=== PATIENT | female | born 1955 | race Caucasian/White ===

== ENCOUNTER → 2016-08-05 | Outpatient (CLI) | payer OTHER ==
[~2016-08-05] MED LIST: AMPYRA PO; HYDR-1838 PO; MULTTAB58 PO; NITR1CAP32 PO; SNQ50 PO; WARF5TAB90 PO; WARF7.5T PO
[2016-08-05 17:10] LABS: BASO % 0.4 %; BASO ABS # 0.03 K/uL (0-0.2); COMPLETE YES; EOS % 3.2 %; IG% 0.1 %; LYMPH % 34.7 %; LYMPH ABS # 2.36 K/uL (1.2-3.4); MEAN CELL VOLUME 85.4 fL (80-100); MEAN CORPUSCULAR HEMOGLOBIN 28.8 pg (25-34); MEAN CORPUSCULAR HGB CONC 33.7 g/dl (32-36); MEAN PLATELET VOLUME 10.7 fL (7.4-10.4); MONO % 5.1 %; NEUT % 56.5 %; PLATELET COUNT 297 K/uL (130-400); WHITE BLOOD COUNT 6.81 K/uL (4.8-10.8)
[2016-08-05 17:47] LABS: LYME DISEASE AB IGG NEG (NEG); LYME DISEASE AB IGM NEG (NEG)
[2016-08-05 18:18] LABS: ALKALINE PHOSPHATASE 98 U/L (45-117); ALT/SGPT 31 U/L (12-78); AST/SGOT 31 U/L (15-37); BLOOD UREA NITROGEN 21 mg/dl (7-18); CALCIUM 9.7 mg/dl (8.5-10.1); CARBON DIOXIDE 30 mmol/L (21-32); CHLORIDE 105 mmol/L (98-107); CREATININE 0.74 mg/dl (0.60-1.20); GLUCOSE 104 mg/dl (70-99); POTASSIUM 3.9 mmol/L (3.5-5.1); SODIUM 141 mmol/L (136-145)
[2016-08-10 18:48] LABS: JCV ANTIBODY NEGATIVE; JCV INDEX 0.13
== END | disposition home or self-care (01) ==
LOC: C.LABBC 13:56
PROVIDERS: ATTEND Psychiatry & Neurology Neurology
DX: G35 Multiple sclerosis (principal)

== ENCOUNTER → 2016-08-07 | Outpatient (CLI) | payer OTHER ==
[~2016-08-07] MED LIST changes: +GADAVIST IV PRN
--- NOTE | 2016-08-07 14:35 | DIAGNOSTIC IMAGING REPORT ---
Brain MRI WITH AND WITHOUT CONTRAST HISTORY: Multiple sclerosis. TECHNIQUE: Multiplanar multisequence MRI of the brain was performed both before and after the intravenous administration of contrast. COMPARISON STUDY: Right MRI 07/16/2015. FINDINGS: No areas of restricted diffusion. No acute intracranial hemorrhage, midline shift or mass effect is present. The ventricular system is stable. A 1.2 cm T2 hyperintense nonenhancing lesion within the atrium of the right lateral ventricle is unchanged since initial MRI. 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 No areas of parenchymal enhancement are present. Moderate mucosal thickening and small fluid levels within the maxillary sinuses. Bilateral mastoid effusions have slightly improved. No significant change in the multiple scattered and patchy areas of T2 hyperintensity within the white matter of the supratentorial and infratentorial brain. This most pronounced within the periventricular locations. This is consistent with the patient's history of multiple sclerosis. IMPRESSION: 1. No change in the extensive white matter plaques within the supratentorial and infratentorial brain consistent with the patient's history of multiple sclerosis. 2. Acute on chronic paranasal sinusitis. 3. No abnormal enhancement to suggest active demyelination. Electronically signed by: Kavin Edwards M.D. 08/07/2016 2:33 PM Dictated Date/Time: 08/07/2016 2:22 PM
--- NOTE | 2016-08-07 17:09 | DIAGNOSTIC IMAGING REPORT ---
MRI CERVICAL SPINE COMBO CLINICAL HISTORY: Multiple sclerosis. COMPARISON STUDY: No priors. TECHNIQUE: MRI of the cervical spine is performed utilizing various T1 and T2-weighted sequences in the axial and sagittal planes. Contrast-enhanced images were acquired following the IV administration of 7 cc of Gadavist. Examination is degraded by spinal curvature and motion artifact. FINDINGS: Cervical spine: Vertebral body height and alignment are maintained throughout the cervical spine. There is dextrocurvature of the cervical spine. Vertebral body height and alignment appear maintained. The atlantodental articulation is preserved. The spinous processes appear intact. No destructive bony process is suspected. Intervertebral discs: There is degenerative disc desiccation seen throughout the cervical spine. Moderate loss of height is seen at C5-C6. Spinal cord: There is extensive T2 signal abnormality seen throughout the cervical spine. This extends from the medulla into the upper thoracic cord. No abnormal enhancement is identified on the postcontrast images. There is no significant thinning of the visualized cervical cord. C2-C3: Unremarkable. C3-C4: Unremarkable. C4-C5: A posterior disc osteophyte complex effaces the ventral subarachnoid space. Uncovertebral and facet arthropathy cause moderate to severe left and minimal right neural foraminal stenosis. C5-C6: A posterior disc osteophyte complex effaces the ventral subarachnoid space. Uncovertebral and facet arthropathy cause moderate to severe left and minimal right neural foraminal stenosis. C6-C7: A posterior disc osteophyte complex abuts the ventral cord. Uncovertebral and facet arthropathy cause minimal left neural foraminal stenosis. C7-T1: Unremarkable. Soft tissues: The prevertebral and paraspinous soft tissues are within normal limits. Brain parenchyma: T2 hyperintense lesions are identified within the keerthi and medulla. IMPRESSION: 1. There is diffuse T2 signal abnormality identified throughout the cervical cord which extends from the medulla to the upper thoracic region. This is consistent with the reported clinical history of multiple sclerosis. No abnormal enhancement is identified on the postcontrast images. 2. Cervical spondylosis as detailed above. Dictated: 08/07/2016 3:00 PM Transcribed: 08/07/2016 5:08 PM Jimbo Electronically signed by: Ty Godwin M.D. 08/08/2016 1:19 AM Dictated Date/Time: 08/07/2016 3:00 PM
[2016-08-10 17:34] LABS: VARICELLA ZOS VIR IGM AB <=0.90 (<=0.90)
== END | disposition home or self-care (01) ==
LOC: C.MRIBC 12:24
PROVIDERS: ATTEND Psychiatry & Neurology Neurology
DX: G35 Multiple sclerosis (principal); Z79.899 Other long term (current) drug therapy; M25.50 Pain in unspecified joint

== ENCOUNTER → 2016-09-07 | Outpatient (CLI) | payer OTHER ==
[~2016-09-07] MED LIST changes: -GADAVIST IV PRN
--- NOTE | 2016-10-02 13:47 | CODING QUERY NO DIAGNOSIS ---
TREATMENT RENDERED WITHOUT A DIAGNOSIS To promote full compliance with coding requirements relating to patient care, physician participation is requested in all cases of tapeman uncertainty. Please assist us with providing a diagnosis/symptom for the test(s) below: A diagnosis/symptom was not documented on your Order. A valid diagnosis/symptom is required to bill all insurances. Please remember that we are unable to code a diagnosis of rule out, probable, possible, questionable, or suspected. Tests that require a diagnosis: * ECG ROUTINE DIAGNOSIS: Provider Signature: Date: Thank you Marline Malone [employer] Once completed, please kindly fax back to [phone] For questions please call [phone]
== END | disposition home or self-care (01) ==
LOC: C.CPL 11:37
PROVIDERS: ATTEND Psychiatry & Neurology Neurology
DX: G35 Multiple sclerosis (principal); Z79.899 Other long term (current) drug therapy

== ENCOUNTER → 2016-09-21 | Outpatient (CLI) | payer OTHER | END | disposition home or self-care (01) | LOC: C.CPL 14:29 | PROVIDERS: ATTEND Psychiatry & Neurology Neurology | DX: G35 Multiple sclerosis (principal) ==

== ENCOUNTER → 2016-12-17 | Outpatient (CLI) | payer BC ==
[2016-12-17 17:01] LABS: BASO % 0.6 %; BASO ABS # 0.02 K/uL (0-0.2); COMPLETE YES; HEMATOCRIT 41.5 % (37-47); IG% 0.3 %; LYMPH % 12.4 %; LYMPH ABS # 0.39 K/uL (1.2-3.4); MEAN CELL VOLUME 85.2 fL (80-100); MEAN CORPUSCULAR HEMOGLOBIN 29.2 pg (25-34); MEAN CORPUSCULAR HGB CONC 34.2 g/dl (32-36); MONO % 11.1 %; NEUT % 69.6 %; PLATELET COUNT 256 K/uL (130-400); RED BLOOD COUNT 4.87 M/uL (4.2-5.4); WHITE BLOOD COUNT 3.15 K/uL (4.8-10.8)
[2016-12-17 17:09] LABS: BLOOD UREA NITROGEN 19 mg/dl (7-18); BUN/CREATININE RATIO 24.9 (10-20); CREATININE 0.78 mg/dl (0.60-1.20)
== END | disposition home or self-care (01) ==
LOC: C.LABBC 12:52
PROVIDERS: ATTEND Urology
DX: G35 Multiple sclerosis (principal); N39.0 Urinary tract infection, site not specified

== ENCOUNTER → 2017-01-05 | Outpatient (CLI) | payer BC ==
--- NOTE | 2017-01-05 08:41 | DIAGNOSTIC IMAGING REPORT ---
RENAL ULTRASOUND CLINICAL HISTORY: Neurogenic bladder. Urinary tract infection. COMPARISON STUDY: Renal ultrasound December 30, 2015. TECHNIQUE: Sonography of the kidneys and the urinary bladder was performed. FINDINGS: The right kidney measures 10.7 cm in maximal dimension and the left measures 10 cm. There is no hydronephrosis. Renal echogenicity, size and cortical thickness are normal. The bladder is unremarkable by sonography. Both ureteral jets were identified. No renal calculi or masses were identified. IMPRESSION: Normal renal ultrasound. No hydronephrosis. Electronically signed by: Norberto Finley M.D. 01/05/2017 8:40 AM Dictated Date/Time: 01/05/2017 8:38 AM
== END | disposition home or self-care (01) ==
LOC: C.ULTRBC 07:58
PROVIDERS: ATTEND Urology
DX: N31.9 Neuromuscular dysfunction of bladder, unspecified (principal); N39.0 Urinary tract infection, site not specified

== ENCOUNTER → 2017-01-22 | Outpatient (CLI) | payer BC ==
[2017-01-22 13:36] LABS: BASO % 0.8 %; BASO ABS # 0.03 K/uL (0-0.2); COMPLETE YES; HEMATOCRIT 40.2 % (37-47); MEAN CELL VOLUME 85.4 fL (80-100); MEAN CORPUSCULAR HEMOGLOBIN 29.1 pg (25-34); MEAN CORPUSCULAR HGB CONC 34.1 g/dl (32-36); MEAN PLATELET VOLUME 11.1 fL (7.4-10.4); MONO % 11.1 %; NEUT % 63.1 %; PLATELET COUNT 261 K/uL (130-400); RED BLOOD COUNT 4.71 M/uL (4.2-5.4); WHITE BLOOD COUNT 3.88 K/uL (4.8-10.8)
== END | disposition home or self-care (01) ==
LOC: C.LABBC 10:05
PROVIDERS: ATTEND Physician Assistant
DX: G35 Multiple sclerosis (principal)

== ENCOUNTER → 2017-06-18 | Outpatient (CLI) | payer BC ==
[2017-06-18 11:12] LABS: BLOOD UREA NITROGEN 15 mg/dl (7-18); CREATININE 0.87 mg/dl (0.60-1.20)
== END | disposition home or self-care (01) ==
LOC: C.LABBC 07:33
PROVIDERS: ATTEND Physician Assistant
DX: Z00.00 Encounter for general adult medical examination without abnormal findings (principal)

== ENCOUNTER → 2017-06-21 | Outpatient (CLI) | payer BC ==
[~2017-06-21] MED LIST changes: +GADAVIST IV PRN
--- NOTE | 2017-06-21 18:08 | DIAGNOSTIC IMAGING REPORT ---
MRI OF THE BRAIN COMBO CLINICAL HISTORY: Multiple sclerosis. COMPARISON STUDY: MRI of the brain dated 08/07/2016. TECHNIQUE: MRI of the brain was performed utilizing various T1 and T2-weighted sequences in the axial, sagittal, and coronal planes. Contrast-enhanced sequences were acquired following the administration of 8 cc of Gadavist. The examination is performed using the multiple sclerosis protocol. FINDINGS: Brain parenchyma: There is extensive confluent T2 signal abnormality seen throughout the subcortical and periventricular white matter, likely related to the reported clinical history of multiple sclerosis. This is not appreciably changed from 08/07/2016. No abnormal enhancement is identified on the postcontrast sequences. There is no hemorrhage or mass effect. There is no restricted diffusion typical for acute ischemia. No enhancing mass lesion is identified on the postcontrast images. Dailey-white matter differentiation is preserved. No extra-axial fluid collection is seen. The cerebellar tonsils are normal in configuration. Ventricles, sulci, and cisterns: Normal in configuration. Pituitary and sella: Unremarkable. Intracranial vasculature: Normal flow voids are maintained at the skull base. Orbits: The bony orbits are grossly intact. Orbital contents are normal in appearance. Sinuses and mastoids: Clear. Calvarium: Unremarkable. Cervical cord: Partially visualized cervical spinal cord is normal in morphology and signal intensity. IMPRESSION: 1. Extensive T2 signal abnormality is again identified throughout the white matter and consistent with the reported clinical history of multiple sclerosis. This has not appreciably changed from 08/07/2016. 2. No abnormal enhancement is identified on the postcontrast sequences. 3. There is no hemorrhage or evidence of acute ischemia. Electronically signed by: Ty Godwin M.D. 06/21/2017 6:07 PM Dictated Date/Time: 06/21/2017 6:01 PM
--- NOTE | 2017-06-21 18:24 | DIAGNOSTIC IMAGING REPORT ---
CERVICAL SPINE COMBO HISTORY: Multiple sclerosis G35 Multiple [id number] TECHNIQUE: Multiplanar multisequence MRI of the cervical spine was performed both before and after the use of intravenous contrast. COMPARISON STUDY: 08/07/2016 FINDINGS: Essentially unchanged exam compared to the prior study. Degenerative disc changes noted throughout considered most significant at C5-C6. This again is unchanged. The cervical spinal cord demonstrates extensive abnormal T2 signal characteristics throughout the entire cervical region. This extends again from the medulla into the upper thoracic region. Overall configuration is similar. There is no significant postcontrast enhancement. C2-C3: No significant central canal or neural foraminal narrowing. C3-C4: No significant central canal or neural foraminal narrowing. C4-C5: Posterior osteophytic change effacing the anterior subarachnoid space. Moderate bilateral foraminal stenosis unchanged. C5-C6: Posterior osteophytic and bulging disc components again effacing the anterior subarachnoid space. Moderate bilateral foraminal stenosis unchanged. C6-C7: Posterior osteophytic change unaltered from the prior study. C7-T1: No significant central canal or neural foraminal narrowing. IMPRESSION: 1. Diffuse signal abnormalities consistent with a diffuse demyelinating disorder extending from the medulla through the upper thoracic cord region. 2. No evidence for postcontrast enhancement. 3. This appearance again is consistent with that of a diffuse stable demyelinating disorder. 4. Degenerative disc change, posterior osteophytic change, and posterior bulging disc components are unaltered from the prior study. 5. This study is considered to be unchanged from the prior exam. The above report was generated using voice recognition software. It may contain grammatical, syntax or spelling errors. Electronically signed by: Giovanni Ross M.D. 06/21/2017 6:22 PM Dictated Date/Time: 06/21/2017 6:18 PM
== END | disposition home or self-care (01) ==
LOC: C.MRI 16:32
PROVIDERS: ATTEND Physician Assistant
DX: G35 Multiple sclerosis (principal)

== ENCOUNTER → 2017-08-02 | Outpatient (CLI) | payer BC ==
[~2017-08-02] MED LIST changes: -GADAVIST IV PRN
[2017-08-02 11:09] LABS: BASO % 0.4 %; BASO ABS # 0.01 K/uL (0-0.2); EOS ABS # 0.25 K/uL (0-0.5); HEMATOCRIT 39.8 % (37-47); HEMOGLOBIN 13.9 g/dL (12.0-16.0); IG# 0.01 K/uL (0.00-0.02); LYMPH % 12.3 %; LYMPH ABS # 0.34 K/uL (1.2-3.4); MEAN CELL VOLUME 84.9 fL (80-100); MEAN CORPUSCULAR HEMOGLOBIN 29.6 pg (25-34); MEAN CORPUSCULAR HGB CONC 34.9 g/dl (32-36); MEAN PLATELET VOLUME 10.7 fL (7.4-10.4); MONO % 12.6 %; MONO ABS # 0.35 K/uL (0.11-0.59); NEUT % 65.3 %; NEUT ABS # 1.81 K/uL (1.4-6.5); PLATELET COUNT 232 K/uL (130-400); RED CELL DISTRIBUTION WIDTH CV 12.9 % (11.5-14.5); RED CELL DISTRIBUTION WIDTH SD 39.4 fL (36.4-46.3); WHITE BLOOD COUNT 2.77 K/uL (4.8-10.8)
[2017-08-02 11:15] LABS: ALBUMIN 3.6 gm/dl (3.4-5.0); ALT/SGPT 27 U/L (12-78); AST/SGOT 37 U/L (15-37); BLOOD UREA NITROGEN 16 mg/dl (7-18); CARBON DIOXIDE 29 mmol/L (21-32); CREATININE 0.85 mg/dl (0.60-1.20); GLUCOSE 99 mg/dl (70-99); POTASSIUM 3.6 mmol/L (3.5-5.1); SODIUM 139 mmol/L (136-145)
[2017-08-02 11:18] LABS: ALKALINE PHOSPHATASE 111 U/L (45-117); TOTAL PROTEIN 7.1 gm/dl (6.4-8.2)
== END | disposition home or self-care (01) ==
LOC: C.LABBC 06:58
PROVIDERS: ATTEND Psychiatry & Neurology Neurology
DX: G35 Multiple sclerosis (principal); E55.9 Vitamin D deficiency, unspecified

== ENCOUNTER 2021-04-14 14:55 | Inpatient (IN) ==
--- NOTE | 2021-04-14 15:08 | Emergency Department Note ---
Impression & Plan COVID-19, Hypoxia ADMIT ED Provider Note HPI: The patient is a 65-year-old female with history of hypertension, multiple sclerosis, on monthly IV therapy for MS, who presents the emergency department the chief complaint of increased work of breathing. Patient states that she tested positive for COVID-19 2 days ago via a home test. Patient tells me that she is unvaccinated. Patient states that over the past several days her work of breathing has been worsening, she states that she was using a home pulse ox today and it was "low" and therefore she presented to the emergency department for further assessment. On arrival here to the ED the patient is noted to be hypoxic, on my initial assessment she is on 4 L nasal cannula oxygen and saturating at 93%. She denies any chest pain, denies any nausea or vomiting. She is otherwise hemodynamically stable on my initial assessment. ROS: -Pulmonary: Shortness of breath, COVID-19 positive *10 point review systems was conducted and is otherwise negative unless stated above *Outpatient medications and allergy history reviewed PE: General: Alert, NAD HEENT: Normocephalic, atraumatic, trachea midline Eyes: Extraocular eye movement is intact, no scleral erythema Pulmonary: Diminished breath sounds bilaterally without wheezing or crackles Cardio: Regular rate and rhythm GI: Abdomen is soft, nontender : No suprapubic tenderness MSK: No evidence of trauma or malformation of the extremities, no edema Skin: No evidence of rash Neuro: Alert, no focal deficits 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 She does not require supplemental oxygen at baseline. Patient tells me she was diagnosed with COVID-19 via home test several days ago, this was confirmed here in the ED and she is COVID-19 positive. Chest x-ray shows evidence of a multifocal pneumonia likely consistent with COVID-19 pneumonia. She does not have a leukocytosis. Procalcitonin will be added on. I suspect that all of her symptoms are secondary to COVID-19. She was given a dose of Decadron here in the ED for her hypoxia. Patient's lab work otherwise is generally unremarkable, troponin is negative x1, EKG does not show any ischemic changes. I discussed the above findings with the patient she is in agreement for admission. She is improved on nasal cannula oxy gen. [facility] hospitalist group will be consulted for further care. Patient was admitted in stable condition. * CRITICAL CARE TIME: 35 min -Stabilization of hypoxia requiring supplemental oxygen via nasal cannula for improvement in oxygenation for saturations less than 90% on room air, time spent at the bedside, interpretation of diagnostic studies, arrangement of admission Diagnosis: 1. Hypoxia 2. COVID-19 infection 3. Dyspnea 4. Multifocal pneumonia Disposition: Admission Giovanni Smith DO Emergency Medicine Past Med/Surg History Medical History (Updated 04/14/21 @ 17:40 by Giovanni Smith DO) Cognitive disorder Common migraine without intractability Depression with anxiety Hearing loss Multiple sclerosis (~1985) Muscle spasm Neurogenic bladder Vitamin D deficiency Surgical History S/P appendectomy Surgical history of tubal ligation Family History Mother Breast cancer Sister Breast cancer Brother Diabetes Hypertension Social History Smoking Status: Never smoker Hx Alcohol Use: Yes (SOCIAL DRINKER) Preferred Language: Czech marital status: Feels Safe at Home: Yes Allergies Allergies Allergy/AdvReac Type Severity Reaction Status Date / Time cat dander Allergy Intermediate PUFFY Verified 04/14/21 16:30 EYES, SNEEZING Iodinated Contrast Media Allergy Intermediate Difficulty Verified 04/14/21 16:27 Breathing iodine Allergy Intermediate Difficulty Verified 04/14/21 16:27 Breathing Sulfa (Sulfonamide Allergy Mild Rash Verified 04/14/21 16:27 Antibiotics) SEASONAL Allergy Intermediate FALL--SNEEZING, Uncoded 04/14/21 16:30 CONGESTION Home Meds Home Medications Medication Instructions Recorded Confirmed valsartan 160 mg tablet 160 mg PO DAILY 07/29/20 04/14/21 Previous Rx's Medication Instructions Recorded memantine 5 mg tablet 5 mg PO BID 30 Days #180 tab 07/29/20 dalfampridine 10 mg 10 mg PO Q12H 30 Days #60 tab 08/23/20 tablet,extended release,12 hr (Ampyra) doxepin 50 mg capsule 50 mg PO BID 30 Days #60 cap 11/15/20 natalizumab 300 mg/15 mL 300 mg IV Q28D #15 ml 11/20/20 intravenous solution (Tysabri) methylprednisolone 4 mg tablets in 4 mg PO .COMPLEX #21 ea 04/07/21 a dose pack (Medrol (Santhosh)) Results & Data (ED) Vital Signs Vital Signs - 24 hr 04/14/21 14:38 04/14/21 15:03 04/14/21 15:06 Temperature 37.6 C H Temperature Source Temporal Artery Scan Pulse Rate 100 H Pulse Rate [Left Finger] Pulse Rhythm Regular Pulse Rhythm [Left Finger] Pulse Strength Normal Pulse Strength [Left Finger] Respiratory Rate 28 H Respiratory Effort / Characteristics Non-Labored Spontaneous Labored Respiratory Depth Normal Normal Respiratory Pattern Regular Blood Pressure 172/110 H Blood Pressure [Right Arm] Blood Pressure Mean 130 Blood Pressure Mean [Right Arm] Blood Pressure Position Sitting Blood Pressure Position [Right Arm] Pulse Oximetry 87 L 87 L Oxygen Delivery Method Room Air Oxygen Flow Rate 0 Sepsis Recent Fever Within 48 Hours No Sepsis New/Unexplained Change in Mental Status No Sepsis Action Taken by Nursing No Action Required Oxygen Flow Rate - Titration 4 Pulse Oximetry Post Tiitration 98 04/14/21 15:16 04/14/21 16:42 Temperature Temperature Source Pulse Rate 96 H Pulse Rate [Left Finger] 90 Pulse Rhythm Pulse Rhythm [Left Finger] Regular Pulse Strength Pulse Strength [Left Finger] Normal Respiratory Rate 20 Respiratory Effort / Characteristics Non-Labored Spontaneous Respiratory Depth Normal Respiratory Pattern Regular Blood Pressure Blood Pressure [Right Arm] 161/86 H Blood Pressure Mean Blood Pressure Mean [Right Arm] 111 Blood Pressure Position Blood Pressure Position [Right Arm] Sitting Pulse Oximetry 95 Oxygen Delivery Method Nasal Cannula Oxygen Flow Rate 4 Sepsis Recent Fever Within 48 Hours Sepsis New/Unexplained Change in Mental Status Sepsis Action Taken by Nursing Oxygen Flow Rate - Titration Pulse Oximetry Post Tiitration Laboratory Data Result diagrams: 04/14/21 15:13 04/14/21 15:13 Lab Results 04/14/21 04/14/21 04/14/21 Range/Units 15:13 15:13 15:13 WBC 10.34 (4.8-10.8) K/uL RBC 4.66 (4.2-5.4) M/uL Hgb 13.2 (12.0-16.0) g/dL Hct 39.6 (37-47) % MCV 85.0 (80-100) fL MCH 28.3 (25-34) pg MCHC 33.3 (32-36) g/dL RDW Std Deviation 41.3 (36.4-46.3) fL RDW Coeff of Elena 13.5 (11.5-14.5) % Plt Count 399 (130-400) K/uL MPV 9.9 (7.4-10.4) fL Neutrophils % (Manual) 84.4 % Lymphocytes % (Manual) 7.8 % Monocytes % (Manual) 4.3 % Eosinophils % (Manual) 0.9 % Metamyelocytes % (Man) 1.7 % Myelocytes % (Man) 0.9 % Neutrophils # (Manual) 8.73 H (1.4-6.5) K/uL Total Absolute Neuts 8.73 H (1.4-6.5) K/uL Lymphocytes # (Manual) 0.81 L (1.2-3.4) K/uL Total Abs Lymphocytes 0.81 L (1.2-3.4) K/uL Monocytes # (Manual) 0.44 (0.11-0.59) K/uL Eosinophils # (Manual) 0.09 (0-0.5) K/uL Metamyelocytes # (Man) 0.18 H (0-0) K/uL Myelocytes # (Manual) 0.09 H (0-0) K/uL PT 10.7 (9.0-12.0) Seconds INR 1.1 (0.9-1.1) APTT 25.6 (21.0-31.0) Seconds PTT Ratio 1.0 VBG pH (7.36-7.41) VBG pCO2 (38-50) mmHg VBG pO2 mmHg VBG HCO3 mmol/L VBG O2 Saturation % VBG Base Excess mEq/L Barometric Pressure mm/Hg Sodium 137 (136-145) mmol/L Potassium 3.7 (3.5-5.1) mmol/L Chloride 103 (98-107) mmol/L Carbon Dioxide 29 (21-32) mmol/L Anion Gap 5.0 (3-11) BUN 22 H (7-18) mg/dl Creatinine 0.78 (0.6-1.2) mg/dl Est Cr Clr Drug Dosing 71.2 ml/min Est GFR ( Amer) 92.5 ml/min Est GFR (Non-Af Amer) 79.8 ml/min BUN/Creatinine Ratio 28.7 H (10-20) Glucose 126 H (70-99) mg/dl Calcium 9.8 (8.5-10.1) mg/dl Total Bilirubin 0.7 (0.2-1) mg/dl AST 70 H (15-37) U/L ALT 32 (12-78) Alkaline Phosphatase 77 (45-117) U/L Troponin I < 0.015 (0-0.045) ng/ml NT-Pro-B Natriuret Pep 1095 H (0-900) pg/ml Total Protein 7.6 (6.4-8.2) gm/dl Albumin 3.0 L (3.4-5.0) gm/dl Globulin 4.6 H (2.5-4.0) gm/dl Albumin/Globulin Ratio 0.7 L (0.9-2) SARS-CoV-2 (PCR) (Negative) Influenza Type A (PCR) (Neg) Influenza Type B (PCR) (Neg) RSV (RT-PCR) (Neg) 04/14/21 04/14/21 Range/Units 15:13 15:58 WBC (4.8-10.8) K/uL RBC (4.2-5.4) M/uL Hgb (12.0-16.0) g/dL Hct (37-47) % MCV (80-100) fL MCH (25-34) pg MCHC (32-36) g/dL RDW Std Deviation (36.4-46.3) fL RDW Coeff of Elena (11.5-14.5) % Plt Count (130-400) K/uL MPV (7.4-10.4) fL Neutrophils % (Manual) % Lymphocytes % (Manual) % Monocytes % (Manual) % Eosinophils % (Manual) % Metamyelocytes % (Man) % Myelocytes % (Man) % Neutrophils # (Manual) (1.4-6.5) K/uL Total Absolute Neuts (1.4-6.5) K/uL Lymphocytes # (Manual) (1.2-3.4) K/uL Total Abs Lymphocytes (1.2-3.4) K/uL Monocytes # (Manual) (0.11-0.59) K/uL Eosinophils # (Manual) (0-0.5) K/uL Metamyelocytes # (Man) (0-0) K/uL Myelocytes # (Manual) (0-0) K/uL PT (9.0-12.0) Seconds INR (0.9-1.1) APTT (21.0-31.0) Seconds PTT Ratio VBG pH 7.47 H (7.36-7.41) VBG pCO2 41 (38-50) mmHg VBG pO2 24 mmHg VBG HCO3 29 mmol/L VBG O2 Saturation < 60.0 % VBG Base Excess 4.9 mEq/L Barometric Pressure 727.3 mm/Hg Sodium (136-145) mmol/L Potassium (3.5-5.1) mmol/L Chloride (98-107) mmol/L Carbon Dioxide (21-32) mmol/L Anion Gap (3-11) BUN (7-18) mg/dl Creatinine (0.6-1.2) mg/dl Est Cr Clr Drug Dosing ml/min Est GFR ( Amer) ml/min Est GFR (Non-Af Amer) ml/min BUN/Creatinine Ratio (10-20) Glucose (70-99) mg/dl Calcium (8.5-10.1) mg/dl Total Bilirubin (0.2-1) mg/dl AST (15-37) U/L ALT (12-78) Alkaline Phosphatase (45-117) U/L Troponin I (0-0.045) ng/ml NT-Pro-B Natriuret Pep (0-900) pg/ml Total Protein (6.4-8.2) gm/dl Albumin (3.4-5.0) gm/dl Globulin (2.5-4.0) gm/dl Albumin/Globulin Ratio (0.9-2) SARS-CoV-2 (PCR) POSITIVE A* (Negative) Influenza Type A (PCR) Negative (Neg) Influenza Type B (PCR) Negative (Neg) RSV (RT-PCR) Negative (Neg) Administered Medications Discontinued Medications Dexamethasone (Dexamethasone Sod Inj 4 Mg/Ml Vial) Confirm Administered Dose 4 mg .ROUTE .STK-MED ONE Stop: 04/14/21 16:49 Last Admin: 04/14/21 16:51 Dose: Not Given Documented by: [id number] Dexamethasone 8 mg/ Syringe 2 mls @ 1 mls/min IV ONE ONE Stop: 04/14/21 16:13 Last Admin: 04/14/21 16:51 Dose: 1 mls/min Documented by: [id number] Imaging Data Radiologist's Impression: Chest X-Ray 04/14/21 14:58 SINGLE VIEW CHEST CLINICAL HISTORY: Dyspnea. FINDINGS: An AP, portable, upright chest radiograph is compared to study dated 02/19/2013. The cardiomediastinal silhouette is unremarkable. There is multifocal airspace consolidation, most confluent in the right upper and left lower lobes. No large pleural effusion or pneumothorax is seen. The skeletal structures are osteopenic. The bony thorax is grossly intact. Spondylotic change is seen throughout the thoracic spine. IMPRESSION: Multifocal airspace consolidation is typical for pneumonia. Clinical correlation will be required and radiographic follow-up to resolution is recommended. ACT 112: Negative or not required by law. Electronically signed by: Ty Godwin M.D. 04/14/2021 3:46 PM Discharge Plan Visit Data Chief Complaint: Shortness of Breath/Dyspnea ED Provider: Giovanni Smith Discharge Problem: COVID-19, Hypoxia Forms [facility] [employer] Prescriptions Prescriptions: No Action dalfampridine [Ampyra] 10 mg tablet extended release 12 hr 10 mg PO Q12H 30 Days Qty: 60 RF: 5 doxepin 50 mg capsule 50 mg PO BID 30 Days Qty: 60 RF: 5 Tysabri 300 mg/15 mL solution 300 mg IV Q28D Qty: 15 RF: 11 methylprednisolone [Medrol (Santhosh)] 4 mg tablets,dose pack 4 mg PO .COMPLEX Qty: 21 RF: 0 valsartan 160 mg tablet 160 mg PO DAILY RF: 0 memantine 5 mg tablet 5 mg PO BID 30 Days Qty: 180 RF: 3 Referrals Referrals: Mynor Solorio DO [Primary Care Provider] -
[2021-04-14 15:31] LABS: Hematocrit (blood only) 39.6 % (37-47); Hemoglobin 13.2 g/dL (12.0-16.0); Mean Corpuscular Hemoglobin 28.3 pg (25-34); Mean Corpuscular Hgb Conc 33.3 g/dL (32-36); Mean Platelet Volume 9.9 fL (7.4-10.4); Platelet Count 399 K/uL (130-400); RDW Coefficient of Variation 13.5 % (11.5-14.5); RDW Standard Deviation 41.3 fL (36.4-46.3); Red Blood Count 4.66 M/uL (4.2-5.4); White Blood Count 10.34 K/uL (4.8-10.8)
[2021-04-14 15:42] LABS: INR 1.1 (0.9-1.1); Partial Thromboplastin Time 25.6 Seconds (21.0-31.0); Prothrombin Time 10.7 Seconds (9.0-12.0)
--- NOTE | 2021-04-14 15:47 | XRay Report ---
SINGLE VIEW CHEST CLINICAL HISTORY: Dyspnea. FINDINGS: An AP, portable, upright chest radiograph is compared to study dated 02/19/2013. The cardiom ediastinal silhouette is unremarkable. There is multifocal airspace consolidation, most confluent in the right upper and left lower lobes. No large pleural effusion or pneumothorax is seen. The skeletal structures are osteopenic. The bony thorax is grossly intact. Spondylotic change is seen throughout the thoracic spine. IMPRESSION: Multifocal airspace consolidation is typical for pneumonia. Clinical correlation will be required and radiographic follow-up to resolution is recommended. ACT 112: Negative or not required by law. Electronically signed by: Ty Godwin M.D. 04/14/2021 3:46 PM
[2021-04-14 15:55] LABS: ALC (manual) 0.81 K/uL (1.2-3.4); ANC (manual) 8.73 K/uL (1.4-6.5); Eosinophils # (manual) 0.09 K/uL (0-0.5); Eosinophils % (manual) 0.9 %; Lymphocytes # (manual) 0.81 K/uL (1.2-3.4); Lymphocytes % (manual) 7.8 %; Metamyelocytes # (manual) 0.18 K/uL (0-0); Metamyelocytes % (manual) 1.7 %; Monocytes # (manual) 0.44 K/uL (0.11-0.59); Monocytes % (manual) 4.3 %; Myelocytes # (manual) 0.09 K/uL (0-0); Myelocytes % (manual) 0.9 %; Neutrophils # (manual) 8.73 K/uL (1.4-6.5); Neutrophils % (manual) 84.4 %
[2021-04-14 15:58] LABS: BUN Creatinine Ratio 28.7 (10-20); Blood Urea Nitrogen 22 mg/dl (7-18); Calcium 9.8 mg/dl (8.5-10.1); Carbon Dioxide 29 mmol/L (21-32); Chloride 103 mmol/L (98-107); Creatinine Clr Calc Pharmacy 71.2 ml/min; Est GFR (African American) 92.5 ml/min; Est GFR (Non-African American) 79.8 ml/min; Glucose 126 mg/dl (70-99); Potassium 3.7 mmol/L (3.5-5.1); Sodium 137 mmol/L (136-145)
[2021-04-14 16:05] LABS: Alanine Aminotransferase 32 (12-78); Albumin Globulin Ratio 0.7 (0.9-2); Alkaline Phosphatase 77 U/L (45-117); Aspartate Aminotransferase 70 U/L (15-37); Bilirubin,Total 0.7 mg/dl (0.2-1); Globulin 4.6 gm/dl (2.5-4.0); NT Pro B Type Natriuretic Pept 1095 pg/ml (0-900); Total Protein 7.6 gm/dl (6.4-8.2); Troponin I < 0.015 ng/ml (0-0.045)
[2021-04-14 16:11] LABS: Influenza A virus by PCR Negative (Neg); Influenza B virus by PCR Negative (Neg); RSV by PCR Negative (Neg)
[2021-04-14] MEDS ORDERED: dexAMETHasone 8 MG in SYRINGE 0 ML IV ONE (16:12)
[2021-04-14 16:14] LABS: Base Excess VBG 4.9 mEq/L; HCO3 VBG 29 mmol/L; PCO2 VBG 41 mmHg (38-50); PO2 VBG 24 mmHg; pH VBG 7.47 (7.36-7.41)
[2021-04-14 16:16] LABS: Oxygen Saturation VBG < 60.0 %
[2021-04-14 16:24] LABS: SARS CoV2 RNA(COVID-19) InHosp POSITIVE (Negative)
[2021-04-14] MEDS ORDERED: DEXAMETHASONE SOD INJ 4 MG/ML VIAL ONE (16:48)
--- NOTE | 2021-04-14 16:49 | Electrocardiogram Report ---
Test Reason : Blood Pressure : / mmHG Vent. Rate : 098 BPM Atrial Rate : 098 BPM P-R Int : 118 ms QRS Dur : 076 ms QT Int : 352 ms P-R-T Axes : 058 005 038 degrees QTc Int : 449 ms Poor data quality, interpretation may be adversely affected Normal sinus rhythm Minimal voltage criteria for LVH, may be normal variant Nonspecific ST abnormality Abnormal ECG When compared with ECG of 21-SEP-2016 14:46, No significant change was found Confirmed by Fredi Irvin ([id number]) on 04/14/2021 4:49:25 PM Referred By: Confirmed By:Blanco Irvin
--- NOTE | 2021-04-14 18:07 | History & Physical Report ---
Date of Service April 14, 2021 Assessment & Plan (1) COVID-19: Plan: Acute COVID 19 Pneumonia Acute hypoxic respiratory failure requiring supplemental oxygen will place on remdesevir/dexamethasone. place on lovenox. (2) Multiple sclerosis: Plan: resume home meds tysabri is given once a month, usually on the first of the month. History of Present Illness Chief Complaint: SOB Primary Care Provider: Mynor Solorio DO This is a pleasant 65 yo female with PMH of Multiple sclerosis. She is not vaccinated for COVID 19. Patient reports her unvaccinated contracted COVID 19. She has had symptoms for past 5 days which includes SOB on exertion, fatigue. She obtained a home test for COVID which was positive 2 days ago She has been monitoring her o2 sat which has become low which led the patient to seek help at the hospital. Allergies Allergy/AdvReac Type Severity Reaction Status Date / Time cat dander Allergy Intermediate PUFFY Verified 04/14/21 16:30 EYES, SNEEZING Iodinated Contrast Media Allergy Intermediate Difficulty Verified 04/14/21 16:27 Breathing iodine Allergy Intermediate Difficulty Verified 04/14/21 16:27 Breathing Sulfa (Sulfonamide Allergy Mild Rash Verified 04/14/21 16:27 Antibiotics) Home Medications Medication Instructions Recorded Confirmed Type memantine 5 mg tablet 5 mg PO BID 30 Days #180 tab 07/29/20 04/14/21 Rx valsartan 160 mg tablet 160 mg PO DAILY 07/29/20 04/14/21 History dalfampridine 10 mg 10 mg PO Q12H 30 Days #60 tab 08/23/20 04/14/21 Rx tablet,extended release,12 hr (Ampyra) doxepin 50 mg capsule 50 mg PO BID 30 Days #60 cap 11/15/20 04/14/21 Rx natalizumab 300 mg/15 mL 300 mg IV Q28D #15 ml 11/20/20 04/14/21 Rx intravenous solution (Tysabri) methylprednisolone 4 mg tablets in 4 mg PO .COMPLEX #21 ea 04/07/21 04/14/21 Rx a dose pack (Medrol (Santhosh)) Past Med/Surg History Medical History Cognitive disorder Common migraine without intractability Depression with anxiety Hearing loss Multiple sclerosis (~1985) Muscle spasm Neurogenic bladder Vitamin D deficiency Surgical History S/P appendectomy Surgical history of tubal ligation Family History Mother Breast cancer Sister Breast cancer Brother Diabetes Hypertension Social History Smoking Status: Never smoker Second Hand Exposure: No; Do You Dip or Chew Tobacco: No; Tobacco Cessation Education Requested by Patient: No Hx Alcohol Use: No Hx Substance Use: No Preferred Language: Danish Communication Ability: Effective Block Cleaner Required: No Beliefs That Will Affect Care: None marital status: Current Living Situation: Spouse Other Information That Helps Us Care for You: No Feels Safe at Home: Yes Safety Concerns: Feels Safe At This Time Assistive Devices: Glasses, Oxygen - Continuous and Walker Assistive Devices Comment: 1 pair of glasses with patient. walker not with patient Review of Systems Constitutional: + body aches, + fatigue and + weakness; no fever Eyes: no blind spots Ear, Nose, Mouth, Throat: no ear pain and no tinnitus Respiratory: no dyspnea Cardiovascular: no chest pain Gastrointestinal: no abdominal pain Genitourinary: + difficulty urinating (requires self cath); no dysuria Musculoskeletal: no back pain Integumentary: no acne Neurologic: no gait abnormality Psychiatric: no behavioral changes Endocrine: + fatigue Hematologic / Lymphatic: no easy bleeding Physical Exam Constitutional: WD/WN, vitals as above Eyes: PERRL, conjunctivae normal, anicteric sclerae ENMT: external ear and nose normal, oropharynx normal Neck: trachea midline, no thyromegaly Respiratory: + labored breathing Auscultation: + diminished lung sounds Cardiovascular: RRR, no murmur, no edema Gastrointestinal (Abdomen): normal bowel sounds, soft, nontender, no hepatosplenomegaly Musculoskeletal: no cyanosis or clubbing, extremities motor strength 5/5 Skin: no rashes, warm and dry Neurologic: PERRL, EOMI, accommodation nl, no face palsy, no dysarthria Psychiatric: A+Ox3, euthymic affect Lymphatic: no cervical or axillary lymphadenopathy Results & Data Results & Data ([facility]) Vital Signs (Past 12 Hours) Vital Signs Temp Pulse Pulse Resp BP BP Pulse Ox 04/14/21 16:42 90 20 161/86 H 04/14/21 15:16 96 H 95 04/14/21 15:03 37.6 C H 100 H 28 H 172/110 H 87 L 04/14/21 14:38 87 L PG Care Time/CCT Total # of Minutes Spent Total Time Spent with Patient: Total time spent is greater than 50% in coordination of care (as documented) at patient's floor/unit and/or counseling patient: Coding Level of Care Code 64876 Initial Inpt Care Lvl 3 Diagnoses COVID-19 U07.1 Multiple sclerosis G35
[2021-04-14] MEDS ORDERED: REMDESIVIR 200 MG in SODIUM CHLORIDE 0.9% 210 ML IV ONE (19:00)
[2021-04-14] MEDS: SODIUM CHLORIDE 0.9% 10ML FLUSH IV SCH (23:42)
[2021-04-15] MEDS: MEMANTINE HCL 5 MG TAB PO SCH ×3 (01:18→20:24)
[2021-04-15] MEDS: DOXEPIN HCL 50 MG CAPSULE PO SCH ×3 (01:19→20:24)
[2021-04-15] MEDS: ENOXAPARIN INJ 40 MG/0.4 ML SYR SQ SCH ×4 (01:20→20:23)
[2021-04-15 07:45] LABS: Albumin Level 2.4 gm/dl (3.4-5.0); BUN Creatinine Ratio 41.9 (10-20); Calcium 9.6 mg/dl (8.5-10.1); Creatinine Clr Calc Pharmacy 88.2 ml/min; Est GFR (African American) 109.1 ml/min; Est GFR (Non-African American) 94.1 ml/min; Potassium 4.2 mmol/L (3.5-5.1)
[2021-04-15 07:48] LABS: Bilirubin Direct 0.1 mg/dl (0-0.2); Bilirubin,Total 0.5 mg/dl (0.2-1); Total Protein 6.8 gm/dl (6.4-8.2)
[2021-04-15] MEDS: VALSARTAN 80 MG TAB PO SCH (07:59)
[2021-04-15] MEDS: dexAMETHasone 6 MG in SYRINGE 0 ML IV SCH (08:26)
--- NOTE | 2021-04-15 10:52 | Hospitalist Progress Note ---
Date of Service April 15, 2021 Assessment & Plan (1) COVID-19: Plan: Acute COVID 19 Pneumonia Acute hypoxic respiratory failure requiring supplemental oxygen, up to 15L today, no distress continue to prone, worked really well today dexamethasone 6mg IV daily, may increase to 20mg tomorrow as CRP is 22 continue Remdesivir, day 2 Lovenox repeat BMP and CRP tomorrow (2) Hypoxia: Plan: Acute hypoxic respiratory failure due to COVID 19 pneumonia up to 15L today good response to prone position she is still a little hypovolemic, no role for Lasix at this time continue dexamethasone (3) Multiple sclerosis: Plan: resume home meds tysabri is given once a month, usually on the first concern that it could interact with Baricitinib will d/w pharmacy tomorrow as if her oxygen requirement goes up she would benefit from Baricitinib Admission and Anticipated Discharge Date Admission Date: April 14, 2021 Subjective patient feels the same as yesterday, not short of breath she is up to 15L NC, has a slight cough, no fever discussed laying prone, she agreed to try it, laid prone for several hours, even skipped lunch significant improvement in her saturations in prone position she is eating fine, no nausea, no constipation reviewed chart, reviewed labs I updated her son Michael about her condition discussed that Remdesivir was okay, would not use Baricitinib with her use of natalizumab CRP quite high at 22, check again tomorrow, consider increasing to 20mg x 5 days then 10mg x 2 days Review of Systems Review of Systems: All systems reviewed & are unremarkable except as noted in Subjective Respiratory: + cough, + dyspnea and + dyspnea on exertion Physical Exam Physical Exam: General: well developed, thin female, ill appearing, comfortable Neck: supple, trachea midline, normal thyroid Lungs: clear to auscultation bilaterally, slightly tachypneic, some accessory muscle use, no distress Heart: regular S1 and S2, no murmur, peripheral pulses normal, capillary refill normal, no edema Abdomen: soft, NT, ND, + BS, no hepatomegaly, normal to percussion Extremities: normal in appearance, no cyanosis, no petechiae, strength is 5/5 bilaterally Neuro: awake, cooperative, moves all extremities, no focal motor deficits, CN II-XII intact, sensation in extremities intact, normal speech Skin: warm, dry, no rash, normal turgor Psych: Awake, alert oriented x 3, euthymic affect Results & Data Results & Data ([facility]) Vital Signs (Past 12 Hours) Vital Signs Temp Pulse Pulse Resp BP Pulse Ox 04/15/21 07:07 36.8 C 81 20 108/65 93 04/15/21 03:48 36.8 C 71 19 117/71 91 04/15/21 02:37 98 H 04/14/21 23:59 37.0 C 96 H 19 129/82 91 04/14/21 22:58 37.0 C 96 H 19 129/82 88 L Laboratory Results Laboratory Results - last 24 hr 04/15/21 04/15/21 04/15/21 06:30 06:30 06:30 Sodium 140 Potassium 4.2 Chloride 106 Carbon Dioxide 27 Anion Gap 7.0 BUN 26 H Creatinine 0.63 Est Cr Clr Drug Dosing 88.2 Est GFR ( Amer) 109.1 Est GFR (Non-Af Amer) 94.1 BUN/Creatinine Ratio 41.9 H Glucose 129 H Calcium 9.6 Total Bilirubin 0.5 Direct Bilirubin 0.1 AST 51 H ALT 26 Alkaline Phosphatase 68 C-Reactive Protein 22.80 H Total Protein 6.8 Albumin 2.4 L Hepatitis C Ab Screen Neg Medications Administered Current Inpatient Medications Acetaminophen (Acetaminophen 325 Mg Tab) 650 mg PO Q6 PRN PRN Reason: Pain Stop: 05/15/21 17:36 Last Admin: 04/15/21 17:51 Dose: 650 mg Documented by: Doxepin HCl (Doxepin Hcl 50 Mg Capsule) 50 mg PO BID [facility] Stop: 05/14/21 20:59 Last Admin: 04/15/21 07:59 Dose: 50 mg Documented by: Enoxaparin Sodium (Enoxaparin Inj 40 Mg/0.4 Ml Syr) 40 mg SQ Q12H [facility] Stop: 05/15/21 00:14 Last Admin: 04/15/21 09:25 Dose: 40 mg Documented by: Remdesivir 100 mg/ Sodium (Chloride) 250 mls @ 250 mls/hr IV Q24H [facility]; Protocol Stop: 04/18/21 20:59 Dexamethasone 6 mg/ Syringe 1.5 mls @ 1 mls/min IV DAILY [facility] Stop: 04/24/21 09:02 Last Admin: 04/15/21 08:26 Dose: 1 mls/min Documented by: Memantine (Memantine Hcl 5 Mg Tab) 5 mg PO BID [facility] Stop: 05/14/21 20:59 Last Admin: 04/15/21 07:59 Dose: 5 mg Documented by: Dalfampridine Er 10mg: Non-Formulary Patient's Own Med 1 ea PO Q12 [facility] Stop: 05/15/21 20:59 Sodium Chloride (Sodium Chloride 0.9% 10ml Flush) 30 ml IV Q24H [facility] Stop: 04/18/21 21:01 Last Admin: 04/14/21 23:42 Dose: 30 ml Documented by: Valsartan (Valsartan 80 Mg Tab) 160 mg PO DAILY [facility] Stop: 05/15/21 08:59 Last Admin: 04/15/21 07:59 Dose: 160 mg Documented by: PG Care Time/CCT Total # of Minutes Spent Total Time Spent: 32 Total Time Spent with Patient: Total time spent is greater than 50% in coordination of care (as documented) at patient's floor/unit and/or counseling patient: Coding Level of Care Code 29387 Subseq Hosp Care Lvl 3 (25 - SIGNIFICANT, SEPARATELY IDENTIFIABLE ) Diagnoses COVID-19 U07.1 Multiple sclerosis G35 Hypoxia R09.02
[2021-04-15] MEDS ORDERED: ACETAMINOPHEN 325 MG TAB PO PRN (17:37)
[2021-04-15] MEDS: DALFAMPRIDINE 10 MG PO SCH (20:21)
[2021-04-15] MEDS: SODIUM CHLORIDE 0.9% 10ML FLUSH IV SCH (20:23)
[2021-04-15] MEDS: REMDESIVIR 100 MG in SODIUM CHLORIDE 0.9% 230 ML IV SCH (20:24)
[2021-04-16 07:00] LABS: Hematocrit (blood only) 35.8 % (37-47); Hemoglobin 11.8 g/dL (12.0-16.0); Mean Corpuscular Hemoglobin 28.4 pg (25-34); Mean Corpuscular Volume 86.3 fL (80-100); Nucleated RBC # (auto) 0.06 K/uL (0-0); Nucleated RBC % (auto) 0.6 %; Platelet Count 503 K/uL (130-400); RDW Coefficient of Variation 13.7 % (11.5-14.5); RDW Standard Deviation 43.8 fL (36.4-46.3); Red Blood Count 4.15 M/uL (4.2-5.4); White Blood Count 11.06 K/uL (4.8-10.8)
[2021-04-16 07:13] LABS: BUN Creatinine Ratio 46.4 (10-20); C Reactive Protein 10.4 mg/dl (0-0.29); Calcium 9.6 mg/dl (8.5-10.1); Est GFR (African American) 103.6 ml/min; Est GFR (Non-African American) 89.4 ml/min; Potassium 4.4 mmol/L (3.5-5.1)
[2021-04-16] MEDS: DOXEPIN HCL 50 MG CAPSULE PO SCH ×2 (08:53→20:39)
[2021-04-16] MEDS: VALSARTAN 80 MG TAB PO SCH (08:53)
[2021-04-16] MEDS: dexAMETHasone 6 MG in SYRINGE 0 ML IV SCH (08:53)
[2021-04-16] MEDS: MEMANTINE HCL 5 MG TAB PO SCH ×2 (08:53→20:39)
[2021-04-16] MEDS: ENOXAPARIN INJ 40 MG/0.4 ML SYR SQ SCH ×2 (08:53→20:40)
[2021-04-16] MEDS: DALFAMPRIDINE 10 MG PO SCH ×2 (08:54→20:40)
--- NOTE | 2021-04-16 10:43 | Hospitalist Progress Note ---
Date of Service April 16, 2021 Assessment & Plan (1) COVID-19: Plan: Acute COVID 19 Pneumonia Acute hypoxic respiratory failure requiring supplemental oxygen, down to 13L continue to prone, worked really well yesterday and today, she notices a difference dexamethasone 6mg IV daily, day 3 CRP is down to 10 from 22, repeat in 2 days continue Remdesivir, day 3 Lovenox for DVT prophylaxis (2) Hypoxia: Plan: Acute hypoxic respiratory failure due to COVID 19 pneumonia down to 13L today good response to prone position, continue intermittently during the day and at night trial of Lasix 20mg IV tomorrow AM continue dexamethasone (3) Multiple sclerosis: Plan: resume home meds tysabri is given once a month, usually on the first Admission and Anticipated Discharge Date Admission Date: April 14, 2021 Subjective patient says she is feeling better compared to yesterday, breathing easier, more strength she says she really notices a difference when laying prone, saturations go up she is eating fairly well, drinking well, will start with Lasix tomorrow labs are stable, CRP is down to 10 from 22 encouraged her to keep doing what she is doing Review of Systems Review of Systems: All systems reviewed & are unremarkable except as noted in Subjective Constitutional: + fatigue and + weakness; no fever Respiratory: + dyspnea and + dyspnea on exertion; no cough Cardiovascular: no chest pain Gastrointestinal: no abdominal pain, no nausea, no vomiting, no constipation and no diarrhea/loose stools Physical Exam Physical Exam: General: well developed, thin female, ill appearing, comfortable Neck: supple, trachea midline, normal thyroid Lungs: clear to auscultation bilaterally, slightly tachypneic, no accessory muscle use, no distress Heart: regular S1 and S2, no murmur, peripheral pulses normal, capillary refill normal, no edema Abdomen: soft, NT, ND, + BS, no hepatomegaly, normal to percussion Extremities: normal in appearance, no cyanosis, no petechiae, strength is 5/5 bilaterally Neuro: awake, cooperative, moves all extremities, no focal motor deficits, CN II-XII intact, sensation in extremities intact, normal speech Skin: warm, dry, no rash, normal turgor Psych: Awake, alert oriented x 3, euthymic affect Results & Data Results & Data ([facility]) Vital Signs (Past 12 Hours) Vital Signs Temp Pulse Pulse Resp BP Pulse Ox 04/16/21 07:55 87 04/16/21 07:08 36.9 C 82 20 130/68 96 04/16/21 03:05 36.8 C 69 14 135/76 97 04/16/21 02:34 75 04/15/21 22:54 36.7 C 77 15 116/62 94 Laboratory Results Laboratory Results - last 24 hr 04/15/21 04/16/21 04/16/21 06:30 06:08 06:08 WBC 11.06 H RBC 4.15 L Hgb 11.8 L Hct 35.8 L MCV 86.3 MCH 28.4 MCHC 33.0 RDW Std Deviation 43.8 RDW Coeff of Elena 13.7 Plt Count 503 H MPV 10.0 Absolute Nucleated RBC 0.06 H Nucleated RBC % (auto) 0.6 Sodium 140 Potassium 4.4 Chloride 108 H Carbon Dioxide 27 Anion Gap 5.0 BUN 33 H Creatinine 0.71 Est Cr Clr Drug Dosing 77.0 Est GFR ( Amer) 103.6 Est GFR (Non-Af Amer) 89.4 BUN/Creatinine Ratio 46.4 H Glucose 136 H Calcium 9.6 C-Reactive Protein 22.80 H 10.40 H Medications Administered Current Inpatient Medications Acetaminophen (Acetaminophen 325 Mg Tab) 650 mg PO Q6 PRN PRN Reason: Pain Stop: 05/15/21 17:36 Last Admin: 04/15/21 17:51 Dose: 650 mg Documented by: Doxepin HCl (Doxepin Hcl 50 Mg Capsule) 50 mg PO BID [facility] Stop: 05/14/21 20:59 Last Admin: 04/16/21 08:53 Dose: 50 mg Documented by: Enoxaparin Sodium (Enoxaparin Inj 40 Mg/0.4 Ml Syr) 40 mg SQ Q12H [facility] Stop: 05/15/21 00:14 Last Admin: 04/16/21 08:53 Dose: 40 mg Documented by: Remdesivir 100 mg/ Sodium (Chloride) 250 mls @ 250 mls/hr IV Q24H [facility]; Protocol Stop: 04/18/21 20:59 Last Infusion: 04/15/21 22:58 Dose: Infused Documented by: Dexamethasone 6 mg/ Syringe 1.5 mls @ 1 mls/min IV DAILY [facility] Stop: 04/24/21 09:02 Last Admin: 04/16/21 08:53 Dose: 1 mls/min Documented by: Memantine (Memantine Hcl 5 Mg Tab) 5 mg PO BID [facility] Stop: 05/14/21 20:59 Last Admin: 04/16/21 08:53 Dose: 5 mg Documented by: Dalfampridine Er 10mg: Non-Formulary Patient's Own Med 1 ea PO Q12 [facility] Stop: 05/15/21 20:59 Last Admin: 04/16/21 08:54 Dose: 1 tab Documented by: Sodium Chloride (Sodium Chloride 0.9% 10ml Flush) 30 ml IV Q24H [facility] Stop: 04/18/21 21:01 Last Admin: 04/15/21 20:23 Dose: 30 ml Documented by: Valsartan (Valsartan 80 Mg Tab) 160 mg PO DAILY [facility] Stop: 05/15/21 08:59 Last Admin: 04/16/21 08:53 Dose: 160 mg Documented by: PG Care Time/CCT Total # of Minutes Spent Total Time Spent with Patient: Total time spent is greater than 50% in coordination of care (as documented) at patient's floor/unit and/or counseling patient: Coding Level of Care Code 89903 Subseq Hosp Care Lvl 2 Diagnoses COVID-19 U07.1 Hypoxia R09.02 Multiple sclerosis G35
[2021-04-16] MEDS: SODIUM CHLORIDE 0.9% 10ML FLUSH IV SCH (20:38)
[2021-04-16] MEDS: REMDESIVIR 100 MG in SODIUM CHLORIDE 0.9% 230 ML IV SCH (20:38)
[2021-04-17] MEDS: DALFAMPRIDINE 10 MG PO SCH ×2 (08:27→20:23)
[2021-04-17] MEDS: dexAMETHasone 6 MG in SYRINGE 0 ML IV SCH (08:27)
[2021-04-17] MEDS: ENOXAPARIN INJ 40 MG/0.4 ML SYR SQ SCH ×2 (08:27→20:21)
[2021-04-17] MEDS: VALSARTAN 80 MG TAB PO SCH (08:28)
[2021-04-17] MEDS: FUROSEMIDE INJ 20 MG/2 ML VIAL IV SCH (08:28)
[2021-04-17] MEDS: MEMANTINE HCL 5 MG TAB PO SCH ×2 (08:28→20:21)
[2021-04-17] MEDS: DOXEPIN HCL 50 MG CAPSULE PO SCH ×2 (08:28→20:21)
--- NOTE | 2021-04-17 10:31 | Hospitalist Progress Note ---
Date of Service April 17, 2021 Assessment & Plan (1) COVID-19: Plan: Acute COVID 19 Pneumonia Acute hypoxic respiratory failure requiring supplemental oxygen, down to 10L continue to prone, worked really well yesterday and today, she notices a difference OOB to chair today, taking deep breaths dexamethasone 6mg IV daily, day 4 continue Remdesivir, day 4 Lovenox for DVT prophylaxis (2) Hypoxia: Plan: Acute hypoxic respiratory failure due to COVID 19 pneumonia down to 10L today good response to prone position, continue intermittently during the day and at night trial of Lasix 20mg IV today, good response, continue tomorrow continue dexamethasone (3) Multiple sclerosis: Plan: resume home meds tysabri is given once a month, usually on the first Admission and Anticipated Discharge Date Admission Date: April 14, 2021 Subjective patient doing okay today, she got OOB to chair she said she felt short of breath with minimal activity, I assured her that is normal with COVID she is eating, no nausea, no fever no chest pain, minimal cough gave her Lasix and she responded well, down to 10L by end of day she is compliant with laying prone Review of Systems Review of Systems: All systems reviewed & are unremarkable except as noted in Subjective Constitutional: + fatigue and + weakness Respiratory: + cough, + dyspnea and + dyspnea on exertion Physical Exam Physical Exam: General: well developed, thin female, ill appearing, comfortable Neck: supple, trachea midline, normal thyroid Lungs: clear to auscultation bilaterally, slightly tachypneic, no accessory muscle use, no distress Heart: regular S1 and S2, no murmur, peripheral pulses normal, capillary refill normal, no edema Abdomen: soft, NT, ND, + BS, no hepatomegaly, normal to percussion Extremities: normal in appearance, no cyanosis, no petechiae, strength is 5/5 bilaterally Neuro: awake, cooperative, moves all extremities, no focal motor deficits, CN II-XII intact, sensation in extremities intact, normal speech Skin: warm, dry, no rash, normal turgor Psych: Awake, alert oriented x 3, euthymic affect Results & Data Results & Data ([facility]) Vital Signs (Past 12 Hours) Vital Signs Temp Pulse Pulse Resp BP BP Pulse Ox 04/17/21 07:59 36.9 C 73 22 109/60 95 04/17/21 06:30 69 04/17/21 03:09 36.9 C 81 22 136/79 96 04/16/21 23:33 36.7 C 86 18 139/72 92 Medications Administered Current Inpatient Medications Acetaminophen (Acetaminophen 325 Mg Tab) 650 mg PO Q6 PRN PRN Reason: Pain Stop: 05/15/21 17:36 Last Admin: 04/15/21 17:51 Dose: 650 mg Documented by: Doxepin HCl (Doxepin Hcl 50 Mg Capsule) 50 mg PO BID [facility] Stop: 05/14/21 20:59 Last Admin: 04/17/21 08:28 Dose: 50 mg Documented by: Enoxaparin Sodium (Enoxaparin Inj 40 Mg/0.4 Ml Syr) 40 mg SQ Q12H [facility] Stop: 05/15/21 00:14 Last Admin: 04/17/21 08:27 Dose: 40 mg Documented by: Furosemide (Furosemide Inj 20 Mg/2 Ml Vial) 20 mg IV QAM [facility] Stop: 05/17/21 08:59 Last Admin: 04/17/21 08:28 Dose: 20 mg Documented by: Remdesivir 100 mg/ Sodium (Chloride) 250 mls @ 250 mls/hr IV Q24H [facility]; Protocol Stop: 04/18/21 20:59 Last Infusion: 04/16/21 22:14 Dose: Infused Documented by: Dexamethasone 6 mg/ Syringe 1.5 mls @ 1 mls/min IV DAILY [facility] Stop: 04/24/21 09:02 Last Admin: 04/17/21 08:27 Dose: 1 mls/min Documented by: Memantine (Memantine Hcl 5 Mg Tab) 5 mg PO BID [facility] Stop: 05/14/21 20:59 Last Admin: 04/17/21 08:28 Dose: 5 mg Documented by: Dalfampridine Er 10mg: Non-Formulary Patient's Own Med 1 ea PO Q12 [facility] Stop: 05/15/21 20:59 Last Admin: 04/17/21 08:27 Dose: 1 tab Documented by: Sodium Chloride (Sodium Chloride 0.9% 10ml Flush) 30 ml IV Q24H [facility] Stop: 04/18/21 21:01 Last Admin: 04/16/21 20:38 Dose: 30 ml Documented by: Valsartan (Valsartan 80 Mg Tab) 160 mg PO DAILY [facility] Stop: 05/15/21 08:59 Last Admin: 04/17/21 08:28 Dose: 160 mg Documented by: PG Care Time/CCT Total # of Minutes Spent Total Time Spent with Patient: Total time spent is greater than 50% in coordination of care (as documented) at patient's floor/unit and/or counseling patient: Coding Level of Care Code 19293 Subseq Hosp Care Lvl 2 Diagnoses COVID-19 U07.1 Hypoxia R09.02 Multiple sclerosis G35
[2021-04-17] MEDS: REMDESIVIR 100 MG in SODIUM CHLORIDE 0.9% 230 ML IV SCH (20:16)
[2021-04-17] MEDS: SODIUM CHLORIDE 0.9% 10ML FLUSH IV SCH (20:19)
[2021-04-18] MEDS: dexAMETHasone 6 MG in SYRINGE 0 ML IV SCH (07:49)
[2021-04-18] MEDS: VALSARTAN 80 MG TAB PO SCH (07:50)
[2021-04-18] MEDS: ENOXAPARIN INJ 40 MG/0.4 ML SYR SQ SCH ×2 (07:50→21:07)
[2021-04-18] MEDS: DALFAMPRIDINE 10 MG PO SCH ×2 (07:50→20:27)
[2021-04-18] MEDS: MEMANTINE HCL 5 MG TAB PO SCH ×2 (07:50→20:29)
[2021-04-18] MEDS: FUROSEMIDE INJ 20 MG/2 ML VIAL IV SCH (07:51)
[2021-04-18] MEDS: DOXEPIN HCL 50 MG CAPSULE PO SCH ×2 (07:51→20:28)
--- NOTE | 2021-04-18 10:58 | Hospitalist Progress Note ---
Date of Service April 18, 2021 Assessment & Plan (1) COVID-19: Plan: Acute COVID 19 Pneumonia Acute hypoxic respiratory failure requiring supplemental oxygen, down to 10L continue to prone throughout the day, she is compliant OOB to chair today, taking deep breaths dexamethasone 6mg IV daily, day 5 continue Remdesivir, day 5 Lovenox for DVT prophylaxis gave lasx yesterday and today, hold further doses (2) Hypoxia: Plan: Acute hypoxic respiratory failure due to COVID 19 pneumonia down to 10L today good response to prone position, continue intermittently during the day and at night trial of Lasix 20mg IV daily, good response but BP is 95 systolic, hold further dosing continue dexamethasone (3) Multiple sclerosis: Plan: resume home meds tysabri is given once a month, usually on the first Admission and Anticipated Discharge Date Admission Date: April 14, 2021 Subjective patient doing well today, sitting up in her chair spending a lot of time prone as instructed eating and drinking well, had a BM last night, making urine BP is low 95 systolic, will hold further Lasix on her no fever, no cough, no chest pain down to 10-11L NC today Review of Systems Review of Systems: All systems reviewed & are unremarkable except as noted in Subjective Respiratory: + dyspnea and + dyspnea on exertion; no cough and no sputum production Physical Exam Physical Exam: General: well developed, thin female, ill appearing, comfortable Neck: supple, trachea midline, normal thyroid Lungs: clear to auscultation bilaterally, slightly tachypneic, no accessory muscle use, no distress Heart: regular S1 and S2, no murmur, peripheral pulses normal, capillary refill normal, no edema Abdomen: soft, NT, ND, + BS, no hepatomegaly, normal to percussion Extremities: normal in appearance, no cyanosis, no petechiae, strength is 5/5 bilaterally Neuro: awake, cooperative, moves all extremities, no focal motor deficits, CN II-XII intact, sensation in extremities intact, normal speech Skin: warm, dry, no rash, normal turgor Psych: Awake, alert oriented x 3, euthymic affect Results & Data Results & Data ([facility]) Vital Signs (Past 12 Hours) Vital Signs Temp Pulse Pulse Resp BP Pulse Ox 04/18/21 10:49 36.4 C L 95 H 18 95/57 L 90 04/18/21 07:17 74 04/18/21 07:09 36.8 C 77 19 130/74 95 04/18/21 04:40 36.4 C L 80 22 105/52 L 94 04/18/21 01:09 74 04/18/21 00:36 36.6 C 76 20 125/81 99 04/17/21 22:57 85 18 95 Medications Administered Current Inpatient Medications Acetaminophen (Acetaminophen 325 Mg Tab) 650 mg PO Q6 PRN PRN Reason: Pain Stop: 05/15/21 17:36 Last Admin: 04/15/21 17:51 Dose: 650 mg Documented by: Doxepin HCl (Doxepin Hcl 50 Mg Capsule) 50 mg PO BID [facility] Stop: 05/14/21 20:59 Last Admin: 04/18/21 07:51 Dose: 50 mg Documented by: Enoxaparin Sodium (Enoxaparin Inj 40 Mg/0.4 Ml Syr) 40 mg SQ Q12H [facility] Stop: 05/15/21 00:14 Last Admin: 04/18/21 07:50 Dose: 40 mg Documented by: Remdesivir 100 mg/ Sodium (Chloride) 250 mls @ 250 mls/hr IV Q24H [facility]; Protocol Stop: 04/18/21 20:59 Last Infusion: 04/17/21 21:16 Dose: Infused Documented by: Dexamethasone 6 mg/ Syringe 1.5 mls @ 1 mls/min IV DAILY [facility] Stop: 04/24/21 09:02 Last Admin: 04/18/21 07:49 Dose: 1 mls/min Documented by: Memantine (Memantine Hcl 5 Mg Tab) 5 mg PO BID [facility] Stop: 05/14/21 20:59 Last Admin: 04/18/21 07:50 Dose: 5 mg Documented by: Dalfampridine Er 10mg: Non-Formulary Patient's Own Med 1 ea PO Q12 [facility] Stop: 05/15/21 20:59 Last Admin: 04/18/21 07:50 Dose: 1 tab Documented by: Sodium Chloride (Sodium Chloride 0.9% 10ml Flush) 30 ml IV Q24H [facility] Stop: 04/18/21 21:01 Last Admin: 04/17/21 20:19 Dose: 30 ml Documented by: Valsartan (Valsartan 80 Mg Tab) 160 mg PO DAILY [facility] Stop: 05/15/21 08:59 Last Admin: 04/18/21 07:50 Dose: 160 mg Documented by: PG Care Time/CCT Total # of Minutes Spent Total Time Spent with Patient: Total time spent is greater than 50% in coordination of care (as documented) at patient's floor/unit and/or counseling patient: Coding Level of Care Code 87813 Subseq Hosp Care Lvl 2 Diagnoses COVID-19 U07.1 Hypoxia R09.02 Multiple sclerosis G35
[2021-04-18] MEDS: REMDESIVIR 100 MG in SODIUM CHLORIDE 0.9% 230 ML IV SCH (20:28)
[2021-04-18] MEDS: SODIUM CHLORIDE 0.9% 10ML FLUSH IV SCH (22:25)
[2021-04-19 05:15] LABS: Appearance Urine Clear (Clear); Bacteria Urine Automated 2+ (Negative); Bilirubin Urine Negative (Negative); Blood Urine Negative (Negative); Color Urine Yellow; Glucose Urine UA Negative (Negative); Ketones Urine Negative (Negative); Leukocyte Esterase Urine 1+ (Negative); Nitrite Urine Positive (Negative); Protein Urine Trace (Negative); RBC Urine Automated 0-4 /hpf (0-4); Specific Gravity Urine 1.032 (1.000-1.030); Urobilinogen Urine Negative (Negative)
[2021-04-19] MEDS: MEMANTINE HCL 5 MG TAB PO SCH ×2 (08:28→20:17)
[2021-04-19] MEDS: DOXEPIN HCL 50 MG CAPSULE PO SCH ×2 (08:28→20:17)
[2021-04-19] MEDS: dexAMETHasone 6 MG in SYRINGE 0 ML IV SCH (08:29)
[2021-04-19] MEDS: DALFAMPRIDINE 10 MG PO SCH ×2 (08:30→20:16)
[2021-04-19] MEDS: cefTRIAXone SODIUM 2,000 MG in DEXTROSE 5% 50 ML IV SCH (08:38)
[2021-04-19 09:11] LABS: Albumin Level 2.4 gm/dl (3.4-5.0); BUN Creatinine Ratio 58.2 (10-20); Bilirubin Direct 0.1 mg/dl (0-0.2); Calcium 9.3 mg/dl (8.5-10.1); Creatinine Clr Calc Pharmacy 83.3 ml/min; Est GFR (Non-African American) 93.2 ml/min; Potassium 4.1 mmol/L (3.5-5.1)
[2021-04-19 09:12] LABS: Bilirubin,Total 0.3 mg/dl (0.2-1); C Reactive Protein 2.48 mg/dl (0-0.29); Total Protein 6.2 gm/dl (6.4-8.2)
--- NOTE | 2021-04-19 12:18 | Hospitalist Progress Note ---
Date of Service April 19, 2021 Assessment & Plan (1) COVID-19: Plan: Acute COVID 19 Pneumonia Acute hypoxic respiratory failure requiring supplemental oxygen, stable at 10L for 2 days continue to prone throughout the day, she is compliant OOB to chair today, taking deep breaths dexamethasone 6mg IV daily, day 6 completed 5 days of Remdesivir Lovenox for DVT prophylaxis hold on Lasix for now (2) Hypoxia: Plan: Acute hypoxic respiratory failure due to COVID 19 pneumonia stable on 10L today good response to prone position, continue intermittently during the day and at night continue dexamethasone (3) Multiple sclerosis: Plan: resume home meds tysabri is given once a month, usually on the first Admission and Anticipated Discharge Date Admission Date: April 14, 2021 Subjective patient sitting up in her chair, she remains on 10L, feeling well eating well, no nausea, no cough c/o dry nose, will get her saline spray labs show BUN 38 and Cr 0.65, CRP 2.4, down from 10 she had a UA last night, appears to have possible UTI, place on Rocephin while awaiting urine culture Review of Systems Review of Systems: All systems reviewed & are unremarkable except as noted in Subjective Physical Exam Physical Exam: General: well developed, thin female, ill appearing, comfortable Neck: supple, trachea midline, normal thyroid Lungs: clear to auscultation bilaterally, slightly tachypneic, no accessory muscle use, no distress Heart: regular S1 and S2, no murmur, peripheral pulses normal, capillary refill normal, no edema Abdomen: soft, NT, ND, + BS, no hepatomegaly, normal to percussion Extremities: normal in appearance, no cyanosis, no petechiae, strength is 5/5 bilaterally Neuro: awake, cooperative, moves all extremities, no focal motor deficits, CN II-XII intact, sensation in extremities intact, normal speech Skin: warm, dry, no rash, normal turgor Psych: Awake, alert oriented x 3, euthymic affect Results & Data Results & Data ([facility]) Vital Signs (Past 12 Hours) Vital Signs Temp Pulse Pulse Resp BP Pulse Ox 04/19/21 10:47 36.5 C 80 17 105/47 L 94 04/19/21 07:30 67 04/19/21 06:45 36.8 C 75 15 102/59 L 98 04/19/21 03:08 37.0 C 77 18 103/61 95 Laboratory Results Laboratory Results - last 24 hr 04/19/21 04/19/21 05:00 07:50 Sodium 138 Potassium 4.1 Chloride 107 Carbon Dioxide 26 Anion Gap 5.0 BUN 38 H Creatinine 0.65 Est Cr Clr Drug Dosing 83.3 Est GFR ( Amer) 108.0 Est GFR (Non-Af Amer) 93.2 BUN/Creatinine Ratio 58.2 H Glucose 93 Calcium 9.3 Total Bilirubin 0.3 Direct Bilirubin 0.1 AST 30 ALT 20 Alkaline Phosphatase 61 C-Reactive Protein 2.48 H Total Protein 6.2 L Albumin 2.4 L Urine Color Yellow Urine Appearance Clear Urine pH 5.0 Ur Specific [place] 1.032 H Urine Protein Trace H Urine Glucose (UA) Negative Urine Ketones Negative Urine Blood Negative Urine Nitrite Positive A Urine Bilirubin Negative Urine Urobilinogen Negative Ur Leukocyte Esterase 1+ H Urine WBC (Auto) 10-30 H Urine RBC (Auto) 0-4 U Hyaline Cast (Auto) 10-30 H U Epithel Cells (Auto) 10-20 H Urine Bacteria (Auto) 2+ H Medications Administered Current Inpatient Medications Acetaminophen (Acetaminophen 325 Mg Tab) 650 mg PO Q6 PRN PRN Reason: Pain Stop: 05/15/21 17:36 Last Admin: 04/15/21 17:51 Dose: 650 mg Documented by: Doxepin HCl (Doxepin Hcl 50 Mg Capsule) 50 mg PO BID [facility] Stop: 05/14/21 20:59 Last Admin: 04/19/21 08:28 Dose: 50 mg Documented by: Enoxaparin Sodium (Enoxaparin Inj 40 Mg/0.4 Ml Syr) 40 mg SQ Q12H [facility] Stop: 05/15/21 00:14 Last Admin: 04/18/21 21:07 Dose: 40 mg Documented by: Dexamethasone 6 mg/ Syringe 1.5 mls @ 1 mls/min IV DAILY [facility] Stop: 04/24/21 09:02 Last Admin: 04/19/21 08:29 Dose: 1 mls/min Documented by: Ceftriaxone Sodium 2,000 mg/ (Dextrose) 70 mls @ 100 mls/hr IV Q24H [facility]; Protocol Stop: 04/29/21 08:59 Last Infusion: 04/19/21 09:30 Dose: Infused Documented by: Memantine (Memantine Hcl 5 Mg Tab) 5 mg PO BID [facility] Stop: 05/14/21 20:59 Last Admin: 04/19/21 08:28 Dose: 5 mg Documented by: Dalfampridine Er 10mg: Non-Formulary Patient's Own Med 1 ea PO Q12 [facility] Stop: 05/15/21 20:59 Last Admin: 04/19/21 08:30 Dose: 1 tab Documented by: Valsartan (Valsartan 80 Mg Tab) 160 mg PO DAILY [facility] Stop: 05/15/21 08:59 Last Admin: 04/18/21 07:50 Dose: 160 mg Documented by: PG Care Time/CCT Total # of Minutes Spent Total Time Spent with Patient: Total time spent is greater than 50% in coordination of care (as documented) at patient's floor/unit and/or counseling patient: Coding Level of Care Code 32208 Subseq Hosp Care Lvl 2 Diagnoses COVID-19 U07.1 Hypoxia R09.02 Multiple sclerosis G35
[2021-04-19] MEDS: ENOXAPARIN INJ 40 MG/0.4 ML SYR SQ SCH ×2 (12:56→20:16)
[2021-04-19] MEDS ORDERED: SODIUM CHLORIDE 0.65% NA SOLN 45 ML (OCEAN) PRN (13:00)
[2021-04-20] MEDS: MEMANTINE HCL 5 MG TAB PO SCH ×2 (09:17→20:07)
[2021-04-20] MEDS: DOXEPIN HCL 50 MG CAPSULE PO SCH ×2 (09:17→20:07)
[2021-04-20] MEDS: ENOXAPARIN INJ 40 MG/0.4 ML SYR SQ SCH ×2 (09:17→20:07)
[2021-04-20] MEDS: DALFAMPRIDINE 10 MG PO SCH ×2 (09:18→20:06)
[2021-04-20] MEDS: dexAMETHasone 6 MG in SYRINGE 0 ML IV SCH (09:18)
[2021-04-20] MEDS: cefTRIAXone SODIUM 2,000 MG in DEXTROSE 5% 50 ML IV SCH (09:25)
--- NOTE | 2021-04-20 12:36 | Hospitalist Progress Note ---
Date of Service April 20, 2021 Assessment & Plan (1) COVID-19: Plan: Acute COVID 19 Pneumonia Acute hypoxic respiratory failure requiring supplemental oxygen, down to 4L today continue to prone throughout the day, she is compliant OOB to chair today, taking deep breaths dexamethasone 6mg IV daily, day 7 completed 5 days of Remdesivir Lovenox for DVT prophylaxis hold on Lasix for now as she is dry/euvolemic (2) Hypoxia: Plan: Acute hypoxic respiratory failure due to COVID 19 pneumonia down to 4L today, big improvement from 10L yesterday good response to prone position, continue intermittently during the day and at night consider discharge to home when down to 2L, get 2 step continue dexamethasone (3) Multiple sclerosis: Plan: resume home meds tysabri is given once a month, usually on the first transferring independently to chair, ambulating to toilet she says she feels fine to go home in terms of strength (4) Urinary tract infection: Plan: continue Rocephin, started 04/19/21 urine culture growing 100k GN bacilli, final results anticipated tomorrow hopefully can change to PO option on discharge Admission and Anticipated Discharge Date Admission Date: April 14, 2021 Subjective patient doing great, down to 4L today, sitting up in chair eating well, sleeping well, no acute issues move to medical floor discussed that she will likely be okay for discharge in 2 days Review of Systems Review of Systems: All systems reviewed & are unremarkable except as noted in Subjective Physical Exam Physical Exam: General: well developed, thin female, comfortable Neck: supple, trachea midline, normal thyroid Lungs: clear to auscultation bilaterally, normal respiratory effort, no accessory muscle use, no distress Heart: regular S1 and S2, no murmur, peripheral pulses normal, capillary refill normal, no edema Abdomen: soft, NT, ND, + BS, no hepatomegaly, normal to percussion Extremities: normal in appearance, no cyanosis, no petechiae, strength is 5/5 b ilaterally Neuro: awake, cooperative, moves all extremities, no focal motor deficits, CN II-XII intact, sensation in extremities intact, normal speech Skin: warm, dry, no rash, normal turgor Psych: Awake, alert oriented x 3, euthymic affect Results & Data Results & Data ([facility]) Vital Signs (Past 12 Hours) Vital Signs Temp Pulse Pulse Resp BP Pulse Ox 04/20/21 11:00 36.5 C 89 18 98/56 L 90 04/20/21 07:30 69 04/20/21 06:39 36.6 C 77 16 99/57 L 96 04/20/21 06:33 98 04/20/21 05:16 100 04/20/21 03:04 36.7 C 80 16 113/67 100 Medications Administered Current Inpatient Medications Acetaminophen (Acetaminophen 325 Mg Tab) 650 mg PO Q6 PRN PRN Reason: Pain Stop: 05/15/21 17:36 Last Admin: 04/15/21 17:51 Dose: 650 mg Documented by: Doxepin HCl (Doxepin Hcl 50 Mg Capsule) 50 mg PO BID [facility] Stop: 05/14/21 20:59 Last Admin: 04/20/21 09:17 Dose: 50 mg Documented by: Enoxaparin Sodium (Enoxaparin Inj 40 Mg/0.4 Ml Syr) 40 mg SQ Q12H [facility] Stop: 05/15/21 00:14 Last Admin: 04/20/21 09:17 Dose: 40 mg Documented by: Dexamethasone 6 mg/ Syringe 1.5 mls @ 1 mls/min IV DAILY [facility] Stop: 04/24/21 09:02 Last Admin: 04/20/21 09:18 Dose: 1 mls/min Documented by: Ceftriaxone Sodium 2,000 mg/ (Dextrose) 70 mls @ 100 mls/hr IV Q24H [facility]; Protocol Stop: 04/29/21 08:59 Last Infusion: 04/20/21 10:10 Dose: Infused Documented by: Memantine (Memantine Hcl 5 Mg Tab) 5 mg PO BID [facility] Stop: 05/14/21 20:59 Last Admin: 04/20/21 09:17 Dose: 5 mg Documented by: Dalfampridine Er 10mg: Non-Formulary Patient's Own Med 1 ea PO Q12 [facility] Stop: 05/15/21 20:59 Last Admin: 04/20/21 09:18 Dose: 1 tab Documented by: Sodium Chloride (Sodium Chloride 0.65% Na Soln 45 Ml ([place])) 2 sprays NA Q1H PRN PRN Reason: Dryness Stop: 05/19/21 12:59 Valsartan (Valsartan 80 Mg Tab) 160 mg PO DAILY [facility] Stop: 05/15/21 08:59 Last Admin: 04/18/21 07:50 Dose: 160 mg Documented by: PG Care Time/CCT Total # of Minutes Spent Total Time Spent with Patient: Total time spent is greater than 50% in coordination of care (as documented) at patient's floor/unit and/or counseling patient: Coding Level of Care Code 76348 Subseq Hosp Care Lvl 2 Diagnoses COVID-19 U07.1 Hypoxia R09.02 Multiple sclerosis G35 Urinary tract infection N39.0
[2021-04-21 07:32] LABS: BUN Creatinine Ratio 35.6 (10-20); Calcium 9.3 mg/dl (8.5-10.1); Creatinine Clr Calc Pharmacy 74.2 ml/min; Est GFR (African American) 100.2 ml/min; Est GFR (Non-African American) 86.4 ml/min; Potassium 4.7 mmol/L (3.5-5.1)
[2021-04-21] MEDS: dexAMETHasone 6 MG in SYRINGE 0 ML IV SCH (08:03)
[2021-04-21] MEDS: MEMANTINE HCL 5 MG TAB PO SCH ×2 (08:03→20:39)
[2021-04-21] MEDS: DOXEPIN HCL 50 MG CAPSULE PO SCH ×2 (08:03→20:39)
[2021-04-21] MEDS: cefTRIAXone SODIUM 2,000 MG in DEXTROSE 5% 50 ML IV SCH (08:03)
[2021-04-21] MEDS: ENOXAPARIN INJ 40 MG/0.4 ML SYR SQ SCH ×2 (08:04→20:37)
[2021-04-21] MEDS: DALFAMPRIDINE 10 MG PO SCH ×2 (08:04→20:38)
--- NOTE | 2021-04-21 08:16 | Hospitalist Progress Note ---
Date of Service April 21, 2021 Assessment & Plan (1) COVID-19: Plan: Acute COVID 19 Pneumonia Acute hypoxic respiratory failure requiring supplemental oxygen, down to 2L today continue to prone throughout the day, she is compliant OOB to chair today, taking deep breaths patient was very weak with standing will require PT/ OT dexamethasone 6mg IV daily,started 04/14 completed 5 days of Remdesivir Lovenox for DVT prophylaxis hold on Lasix for now as she is dry/euvolemic (2) Hypoxia: Plan: Acute hypoxic respiratory failure due to COVID 19 pneumonia good response to prone position, continue intermittently during the day and at night continue dexamethasone (3) Multiple sclerosis: Plan: resume home meds tysabri is given once a month, usually on the first transferring independently to chair, ambulating to toilet she says she feels fine to go home in terms of strength (4) Urinary tract infection: Plan: continue Rocephin, started 04/19/21 urine culture growing 100k pansensitive E coli, best OLI is cipro Admission and Anticipated Discharge Date Admission Date: April 14, 2021 Subjective Patient feels improved she still is requiring some oxygen she was very weak just standing at the side of the bed. Typically she helps in transferring and taking a few short short steps at home her weakness is over her baseline weakness from her multiple sclerosis. Just prior to her illness she had declined to the point where she was having home PT and making small strides which have seemingly been erased by this recent Covid illness Review of Systems Review of Systems: Moderate distress and fatigue no headache, no visual changes no speech or swallowing issues no chest pain, pressure or palpitations Continue shortness of breath, nonproductive cough or wheezes no abdominal pain, nausea or vomiting, no diarrhea Patient frequently straight catheter self now is a [place] catheter no confirmed urinary tract infection present on admission no focal joint pain or swelling no back pain, CVA tenderness or radicular pain no bruising, bleeding or rashes Patient typically has weak lower extremities and torso weakness but can ambulate short distances with a walker at home no complaints of anxiety or depression.. Physical Exam Physical Exam: The patient appeared mild to moderate respiratory distress Vital signs as documented. Head exam is normocephalic atraumatic Neck is without JVD, thyromegaly, or carotid bruits. Lungs are coarse bilaterally in all lung brock tachypnea Cardiac exam, Rhythm is regular.. No murmurs, rubs or gallops. Abdominal exam reveals normal bowel sounds, soft non tender, no masses Extremities are nonedematous and both pedal pulses are present Neurologic exam is alert and oriented, lower extremity strength is 4/5 bilaterally upper extremity strength is 4.5/5 bilaterally Skin is without bruises or rashes Psychologically is without concerns for anxiety or depression.. Results & Data Results & Data ([facility]) Vital Signs (Past 12 Hours) Vital Signs Temp Pulse Resp BP Pulse Ox 04/21/21 07:57 97.7 F 76 20 125/47 L 92 04/21/21 06:00 91 04/21/21 03:36 97.9 F 76 17 123/57 L 96 04/20/21 23:13 97.5 F L 70 17 104/65 96 04/20/21 20:21 98 PG Care Time/CCT Total # of Minutes Spent Total Time Spent with Patient: Total time spent is greater than 50% in coordination of care (as documented) at patient's floor/unit and/or counseling patient: Coding Level of Care Code 58121 Subseq Hosp Care Lvl 2 Diagnoses COVID-19 U07.1 Hypoxia R09.02 Multiple sclerosis G35 Urinary tract infection N39.0
[2021-04-22] MEDS: cefTRIAXone SODIUM 2,000 MG in DEXTROSE 5% 50 ML IV SCH (08:32)
[2021-04-22] MEDS: dexAMETHasone 6 MG in SYRINGE 0 ML IV SCH (08:32)
[2021-04-22] MEDS: DOXEPIN HCL 50 MG CAPSULE PO SCH (08:33)
[2021-04-22] MEDS: VALSARTAN 80 MG TAB PO SCH (08:33)
[2021-04-22] MEDS: ENOXAPARIN INJ 40 MG/0.4 ML SYR SQ SCH (08:33)
[2021-04-22] MEDS: MEMANTINE HCL 5 MG TAB PO SCH (08:33)
[2021-04-22] MEDS: DALFAMPRIDINE 10 MG PO SCH (08:34)
--- NOTE | 2021-04-22 17:56 | Discharge Summary ---
Date of Service April 22, 2021 Admission HPI Per Admitting Provider This is a pleasant 65 yo female with PMH of Multiple sclerosis. She is not vaccinated for COVID 19. Patient reports her unvaccinated contracted COVID 19. She has had symptoms for past 5 days which includes SOB on exertion, fatigue. She obtained a home test for COVID which was positive 2 days ago She has been monitoring her o2 sat which has become low which led the patient to seek help at the hospital. Principal Diagnosis acute hypoxic respiratory failure covid pneumonia e coli UTI Discharge Exam The patient appeared mild to moderate respiratory distress Vital signs as documented. Head exam is normocephalic atraumatic Neck is without JVD, thyromegaly, or carotid bruits. Lungs are coarse bilaterally in all lung brock tachypnea Cardiac exam, Rhythm is regular.. No murmurs, rubs or gallops. Abdominal exam reveals normal bowel sounds, soft non tender, no masses Extremities are nonedematous and both pedal pulses are present Neurologic exam is alert and oriented, lower extremity strength is 4/5 bilaterally upper extremity strength is 4.5/5 bilaterally Skin is without bruises or rashes Psychologically is without concerns for anxiety or depression.. Discharge Data Allergies Allergy/AdvReac Type Severity Reaction Status Date / Time cat dander Allergy Intermediate PUFFY Verified 04/14/21 16:30 EYES, SNEEZING Iodinated Contrast Media Allergy Intermediate Difficulty Verified 04/14/21 16:27 Breathing iodine Allergy Intermediate Difficulty Verified 04/14/21 16:27 Breathing Sulfa (Sulfonamide Allergy Mild Rash Verified 04/14/21 16:27 Antibiotics) Consultations 04/14/21 17:07 ED Decision to Admit Stat Hospital Course (1) COVID-19: Acute COVID 19 Pneumonia Acute hypoxic respiratory failure requiring supplemental oxygen, down to ra at rest and 4 L with exertion, set up for home oxygen and hopeful to home PT continue to prone throughout the day, she is compliant OOB to chair today, taking deep breaths patient was very weak with standing will require PT/ OT dexamethasone 6mg IV daily,started 04/14 completed 5 days of Remdesivir Lovenox for DVT prophylaxis hold on Lasix for now as she is dry/euvolemic (2) Hypoxia: Acute hypoxic respiratory failure due to COVID 19 pneumonia good response to prone position, continue intermittently during the day and at night continue dexamethasone (3) Multiple sclerosis: resume home meds tysabri is given once a month, usually on the first transferring independently to chair, ambulating to toilet she says she feels fine to go home in terms of strength (4) Urinary tract infection: continue Rocephin, started 04/19/21 urine culture growing 100k pansensitive E coli, best OLI is cipro Total Time Total Time Spent Total Time Spent (In Minutes): It required greater than 30 minutes to prepare this patient for discharge Discharge Plan Discharge Items Patient Disposition: Home - Home Health Services Reason For Visit: COVID 19 Discharge Diagnosis: acute hypoxic respiratory failure covid pneumonia urinary tract infection present on admission urinary retention with chronic intermittent catheterization Activity: Per Instructions section Activity Comment: hopeful to have home Physical therapy Non-emergency contact: Primary Care Provider Call non-emergency contact if: your symptoms worsen and you have a fever Follow-up/Referrals: Mynor Solorio DO [Primary Care Provider] - (Dr. Solorio is unavailable. Follow up appointment scheduled with Dr. Wiley.) Annamaria Wiely DO [Resident] - 04/24/21 1:40 pm (Dr. Solorio is unavailable. Please follow up with Dr. Wiley on 04/24/21 at 1:40 pm. This appointment is via telehealth. If you are unable to keep this appointment, please call the office to reschedule at [phone].) Diet: Regular Addtl Attending Provider Instructions: You have been diagnosed with covid infection, it would be recommended that you quarantine yourself for 10 days from your first test or first symptoms, and if at the 10th day you have no symptoms the you can come off quarantine but use common sense precautions. Quarantine means attempting to stay away from people who have not had an active covid infection in the past, and if you have to be around others to wear a mask even if you are indoors, do not share a room to sleep in with others until you are out of quarantine. If you still have symptoms at the 10th day, continue to quarantine until you are symptom free for 48 hours Has been determined you will benefit from having oxygen when you exert yourself at home. Currently you are on 4 L of oxygen with exertion. Your primary care provider can help test your oxygen level to determine when it is safe to stop using it for supplementation You have been diagnosed with an E. coli urinary tract infection. He will complete course of oral antibiotics once home. Pending Studies at Discharge: No Stand-Alone Forms: My [facility], Smoking Cessation Medications and DC Order Prescriptions: New ciprofloxacin HCl [Cipro] 500 mg tablet 500 mg PO BID Qty: 8 RF: 0 (DME) Oxygen Home Liters Per Minute See Rx Instructions .Route Qty: 4 RF: 0 Continued dalfampridine [Ampyra] 10 mg tablet extended release 12 hr 10 mg PO Q12H 30 Days Qty: 60 RF: 5 doxepin 50 mg capsule 50 mg PO BID 30 Days Qty: 60 RF: 5 Tysabri 300 mg/15 mL solution 300 mg IV Q28D Qty: 15 RF: 11 methylprednisolone [Medrol (Santhosh)] 4 mg tablets,dose pack 4 mg PO .COMPLEX Qty: 21 RF: 0 valsartan 160 mg tablet 160 mg PO DAILY RF: 0 memantine 5 mg tablet 5 mg PO BID 30 Days Qty: 180 RF: 3 Discharge Orders: Discharge Order (Routine); Ordered 04/22/21 Ordered By: Jossue Wylie Admission Data Admit Date/Time: 04/14/21 18:26 Attending Provider: Jossue Wylie Admit Provider: Juan Cosby Primary Care Provider: Mynor Solorio Other Providers: Juan Cosby ; [facility] Coding Level of Care Code D/C DAY MANAGEMENT >30 MINS Diagnoses COVID-19 U07.1 Hypoxia R09.02 Multiple sclerosis G35 Urinary tract infection N39.0
== END 2021-04-22 17:00 | disposition home health service (06) | DRG 177 ==
LOC: ED 14:55 → 2S 18:26 → SUATTDRO 18:26 → 2S 23:06